=== PATIENT | female | born 2005 | race Caucasian/White ===

== ENCOUNTER 2024-11-10 22:13 | Emergency (ER) | payer BC, SELFPAY ==
[2024-11-10 22:15] VITALS: BP 143/96
[2024-11-10 22:35] VITALS: BMI 35.4
--- NOTE | 2024-11-11 00:34 | ED.GENMED ---
History of Present Illness
General
Chief Complaint: Head Injury
Source: patient
Exam Limitations: none
Time Seen by Provider: 11/11/24 00:26
Nursing documentation reviewed up to this point in time: agreed with
History of Present Illness
History of Present Illness:
This is a 19-year-old female with no past medical history presents emergency department today with concerns of posterior headache, nausea and photophobia following a fall. Patient states that she was in the shower and at around 9:40 PM, she slipped
and fell back, hitting the back of her head. She not lose consciousness. She has not had any vomiting since the incident. She states that she did call soon and went to go do her schoolwork and she could not focus on her work at all and states
that when she would focus on homework, her symptoms to get worse. She denies any neck pain, denies any dizziness or lightheadedness. 90 chest pain shortness of breath. Patient states that she is not under injury or laceration to the back of her
head. Patient denies any other injuries
Review of Systems
Review of Systems
All Other Systems: ROS reviewed and negative except as documented in HPI and ROS
Phy Exam
Physical Exam
Physical Exam:
General: Patient is well appearing and in no acute distress; non-toxic
Skin: Warm and dry, no rashes or lesions
Head: Normocephalic, atraumatic
Eyes: Sclera non-icteric. EOMs intact.
Neck: No midline spinal tenderness to palpation
Cardiac: Regular rate and rhythm, no murmurs
Peripheral Vascular: No lower extremity swelling or edema
Pulm: Normal respiratory effort, no wheezes, rales, rhonchi
Neuro: CN II-XII intact, no focal neurologic deficits. Normal [id number], heel reyes testing.
Psychiatric: Appropriate mood and affect.
Course
Orders/Labs/Results
Orders:
Orders
11/11/24 00:40
CT Head W/o Iv Contrast Urgent
Comment:
Reason For Exam: posterior headache following fall, photophobia
Acetaminophen [Tylenol] 1,000 mg PO NOW STA
Ondansetron HCl [Zofran] 4 mg PO NOW STA
Vital Signs
Initial and Last Documented VS:
Initial Vital Signs
Temp Pulse Resp BP Pulse Ox
98.1 F 89 20 143/96 99
11/10/24 22:15 11/10/24 22:15 11/10/24 22:15 11/10/24 22:15 11/10/24 22:15
Last Documented Vital Signs
Temp Pulse Resp BP Pulse Ox
98.1 F 76 16 110/69 99
11/10/24 22:15 11/11/24 03:34 11/11/24 03:34 11/11/24 01:30 11/11/24 03:34
MDM/Problems Addressed
Differential Diagnosis Includes:
concussion, tension headache, migraine headache, subdural hematoma, subarachnoid hemorrhage
MDM/Problems Addressed:
19-year-old female with no past medical history presenting department today with concerns of headache, photophobia, and fatigue following head trauma. She fell in the shower and hit her head. She not lose consciousness. On exam, she is
well-appearing in no acute distress she has no focal neurologic deficits. CT scan of the head negative for any acute intracranial normality. Suspect concussion. Patient stable for discharge. Return precautions discussed. Follow-up discussed.
Chronic conditions affecting care:
N/A
*Pulse Oximetry
Patient hypoxic: no
*Critical Care Note
Total Time (30-74mins, 75-104mins- exclusive of procedures): Not Applicable
Data Reviewed
Review of Other/Old Records Reveals: Records (Note your physician documentation to review new discharge summary [employer] to review)
Source: patient and records
ED Attending Note
-
Portions of this chart may have been created with voice recognition software.� Occasional wrong word or��sound alike� substitutions may have occurred due to the inherent limitations of voice recognition software.
Discharge Plan
Departure
Patient Disposition: Home (Routine Discharge)
Date of Disposition: 11/11/24
Time of Disposition: 03:21
Patient with high blood pressure during this ER visit?: Yes
Condition: Good
Discharge Problem:
Concussion
Instructions: Concussion, Adult (DC), Head Injury in Adults (DC), BLOOD PRESSURE
Referrals:
NONE,* [Family Provider] -
Stand Alone Forms: Back to School, Return to Work
Activity Restrictions/Additional Instructions:
Your CT scan showed no evidence of bleeding. Your symptoms likely represent a concussion.
Please follow-up with your primary care provider in 1 to 2 weeks for reassessment.
PLEASE RETURN TO THE EMERGENCY DEPARTMENT SHOULD YOU DEVELOP ANY ACUTE WORSENING OR SYMPTOMS, INTRACTABLE NAUSEA OR VOMITING, FAINTING SPELLS, DIZZINESS, LIGHTHEADEDNESS, FEVERS, CHILLS, CHEST PAIN, SHORTNESS OF BREATH, OR ANY OTHER SIGNS OR
SYMPTOMS WORRISOME TO YOU.
Interventions
Interventions:
*Risk Screen - Suicide Last Done: 11/10/24 22:35
*General Assessment Last Done: 11/10/24 22:15
*Neglect/Abuse Screening Last Done: 11/10/24 22:35
*ED- Fall Risk Assessment Last Done: 11/11/24 01:52
*ED COVID-19 Vaccine History Last Done: 11/10/24 22:35
*Nursing Disposition Last Done: 11/11/24 03:34
ED- Neurological Assessment Last Done: 11/11/24 01:31
ED-Skin Assessment Last Done: 11/11/24 01:31
Discharge Date and Time
Discharge Date/Time: 11/11/24 03:35
Print Language: PAKISTANI
[2024-11-11] MEDS: TYLENOL 1000 MG PO (00:49)
[2024-11-11] MEDS: ZOFRAN 4 MG PO (00:49)
[2024-11-11 01:30] VITALS: BP 110/69
== END 2024-11-11 03:35 | disposition home or self-care (01) ==
LOC: EMR 22:13
PROVIDERS: EMERGENCY PHYSICIAN Emergency Medicine
DX: S06.0X0A Concussion without loss of consciousness, initial encounter (principal); W18.2XXA Fall in (into) shower or empty bathtub, initial encounter
CPT/HCPCS: 99284; 70450

== ENCOUNTER 2025-02-02 22:22 | Emergency (ER) | payer BC, SELFPAY ==
[2025-02-02 22:25] VITALS: BP 165/90
--- NOTE | 2025-02-03 00:24 | ED.SKININJ ---
HPI-Injury
General
Chief Complaint: Bite
Time Seen by Provider: 02/03/25 00:23
History of Present Illness-Injury
Is this injury a work related problem?: Yes
Is pt an associate of [facility]?: No
Initial Injury comments:
TIME OF INITIAL EVALUATION
- 12:25 AM
REVIEW OF OLD RECORDS
- The patient is otherwise healthy. The only other records when patient was here in October diagnosed with a concussion.
Note:
CHIEF COMPLAINT(S)
Cat bite to the thumb.
HISTORY OF PRESENT ILLNESS
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 She presented with a cat bite to the thumb, which occurred approximately between 5:30 and 6:00 PM today. The patient reports that the area is swollen. The cat was a patient at
her workplace. The patient has a history of being on antibiotics for the past month, including amoxicillin and Cephalexin, due to a previous infection. However, she has finished these antibiotics as of last week. The patients tetanus status is
uncertain, though she plans to update it with her primary care physician. The cat in question is an indoor-only cat, and its rabies vaccination status is unknown; however, the cat may be euthanized, and rabies testing may be performed subsequently.
SOCIAL DETERMINANTS AFFECTING HEALTH
The patient is a dentures lab technician, and the incident occurred as a result of her employment.
MEDICATIONS
The patient recently finished a course of Amoxicillin and Cephalexin as of last week and then recently was on doxycycline for respiratory issue.
PHYSICAL EXAM
General: Alert, no acute distress.
Skin: Warm, dry.
Head: Normocephalic, atraumatic; notable swelling noted on the bridge of the nose.
Gastrointestinal: Abdomen nondistended
Back: Normal range of motion, normal alignment.
Musculoskeletal: There are 2 superficial lesions to the ulnar side of the dorsal aspect at the IP joint of the right thumb consistent with cat bite but no sign of infection at this time, although the patient reported the possibly of some swelling I
do not see any significant nor any erythema nor warmth
Neurological: Alert and oriented to person, place, time, and situation; no focal neurological deficit observed.
Psychiatric: Cooperative, appropriate mood & affect.
PLAN
1. Initiate treatment with Augmentin (Amoxicillin/Clavulanic Acid) to address the potential bacterial infection from the cat bite.
2. The patient will receive a prescription for Augmentin to be picked up at her preferred pharmacy, [facility] at the [facility] location.
3. The patients tetanus status will be reviewed and updated with her primary care provider.
4. The patient will not start rabies vaccination immediately and will wait for potential rabies testing following possible euthanasia of the cat.
DIFFERENTIAL DIAGNOSIS
The Differential Diagnosis includes, in no particular order and is not limited to:
1. Bacterial Infection Secondary to Cat Bite
2. Cellulitis
3. Abscess Formation
4. Tetanus
5. Rabies Exposure
6. Allergic Reaction to Bite
7. Puncture Wound Infection
8. Soft Tissue Infection
9. Animal Bite Wound
10. Reactive Swelling
SUMMARY OF ENCOUNTER
The patient, a 19-year-old female dentures lab technician, was seen in the emergency department following a cat bite to the thumb, which occurred in the late afternoon. She reported swelling at the site. Recently finished a course of Amoxicillin and
Cephalexin due to a prior infection. Her tetanus status is uncertain, and she plans to address this with her primary care provider. The cats rabies status is unknown, but testing may follow. Given the risk of a bacterial infection from the cat bite,
Augmentin (Amoxicillin/Clavulanic Acid) was initiated. The patient was offered a rabies vaccination and tetanus booster, both of which she declined.
ASSESSMENT
The patient is at risk for bacterial infection due to the cat bite, as well as potential cellulitis or soft tissue infection. Additionally, rabies exposure and tetanus are considered potential concerns, although immediate vaccination was declined by
the patient.
PLAN
1. Initiate treatment with Augmentin (Amoxicillin/Clavulanic Acid) to address potential bacterial infection from the cat bite.
2. The patient will update her tetanus status with her primary care provider.
3. Rabies vaccination was offered but declined by the patient and will await the results of potential rabies testing of the cat.
MEDICATION RECONCILIATION
The patient is prescribed Augmentin (Amoxicillin/Clavulanic Acid) for treatment.
MEDICAL DECISION MAKING
- Number and Complexity of Problems Addressed: Chronic conditions affecting care. Differential Diagnosis includes bacterial infection secondary to cat bite, cellulitis, abscess formation, tetanus, rabies exposure, allergic reaction to bite, puncture
wound infection, soft tissue infection, animal bite wound, and reactive swelling.
- Data:
Category 1
- Emergency department records reviewed, including history of antibiotics use and current tetanus status.
Category 3
- Discussion with the patient about management options including rabies vaccination and tetanus booster, both of which were declined.
- Risk: Prescription medication management was initiated with Augmentin. Care was significantly affected by the social determinant of health, given the patients occupation as a dentures lab technician, which led to the exposure. Consideration of
Admission/Observation: Escalation of care including admission/observation was considered given the risk associated with the cat bite. However, ultimately the outpatient management with close follow-up was deemed appropriate due to the
[id number] presentation, patients stable vitals, and agreeable disposition for follow-up.
DIAGNOSIS
1. Cat Bite of Thumb - ICD-10: S60.940A
Phy Exam
Physical Exam
Physical Exam:
See HPI
Course
Orders/Labs/Results
Orders:
Orders
02/03/25 00:37
Amoxicillin 875 mg/Clav 125 mg [Augmentin 875 mg/125 mg] 1 tablet PO NOW STA
Vital Signs
Initial and Last Documented VS:
Initial Vital Signs
Temp Pulse Resp BP Pulse Ox
36.7 C 110 20 165/90 98
02/02/25 22:25 02/02/25 22:25 02/02/25 22:25 02/02/25 22:25 02/02/25 22:25
Last Documented Vital Signs
Temp Pulse Resp BP Pulse Ox
37.3 C 86 20 125/81 98
02/03/25 00:36 02/03/25 00:36 02/03/25 00:36 02/03/25 00:36 02/03/25 00:36
*Pulse Oximetry
SaO2: 98
Oxygen Mode of Delivery: Room air
Patient hypoxic: no
*Critical Care Note
Total Time (30-74mins, 75-104mins- exclusive of procedures): Not Applicable
ED Attending Note
-
Portions of this chart may have been created with voice recognition software.� Occasional wrong word or��sound alike� substitutions may have occurred due to the inherent limitations of voice recognition software.
Discharge Plan
Departure
Patient Disposition: Home (Routine Discharge)
Date of Disposition: 02/03/25
Time of Disposition: 00:37
Patient with high blood pressure during this ER visit?: Yes
Discharge Problem:
Cat bite
Instructions: Animal Bites (DC), BLOOD PRESSURE
Prescriptions:
New
amoxicillin-pot clavulanate 875-125 mg tablet
1 tab PO BID Qty: 14 0RF
Activity Restrictions/Additional Instructions:
Next dose of Augmentin tomorrow morning. Return here if worse or other concerns.
Interventions
Interventions:
*Risk Screen - Suicide Last Done: 02/03/25 00:34
*General Assessment Last Done: 02/02/25 22:25
*Neglect/Abuse Screening Last Done: 02/03/25 00:34
*ED- Fall Risk Assessment Last Done: 02/03/25 00:34
*ED COVID-19 Vaccine History Last Done: 02/03/25 00:34
ED-Skin Assessment Last Done: 02/03/25 00:34
Discharge Date and Time
Print Language: ROMANIAN
[2025-02-03 00:32] VITALS: BMI 36.4
[2025-02-03 00:36] VITALS: BP 125/81
[2025-02-03] MEDS: AUGMENTIN 875 MG/125 MG 1 TABLET PO (00:52)
== END 2025-02-03 00:55 | disposition home or self-care (01) ==
LOC: EMR 22:22
PROVIDERS: EMERGENCY PHYSICIAN Emergency Medicine
DX: S60.371A Other superficial bite of right thumb, initial encounter (principal); W55.01XA Bitten by cat, initial encounter
CPT/HCPCS: 99283